=== PATIENT | male | born 2000 | race American Indian/Alaskan Native ===

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

== ENCOUNTER 2021-06-09 22:14 | Emergency (ER) | payer MEDICAID ==
[2021-06-10 03:19] VITALS: BP 111/81
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
== END 2021-06-10 08:11 | disposition home or self-care (01) ==
LOC: ED 22:14
DX: F32.A Depression, unspecified (principal); F41.9 Anxiety disorder, unspecified; F17.200 Nicotine dependence, unspecified, uncomplicated; F12.90 Cannabis use, unspecified, uncomplicated
CPT/HCPCS: 99282